=== PATIENT | male | born 1950 | race African-American/Black ===

== ENCOUNTER → 2017-04-16 | Outpatient (CLI) | payer MEDICARE ==
--- NOTE | 2017-04-16 12:34 | RAD ---
Radionuclide bone scan, 04/16/2017: History: Prostate cancer Whole body imaging was performed following IV injection of 26 mCi of technetium 99m MDP. No previous bone scan is available at this time for comparison purposes. The following findings are delineated: 1. Mildly increased activity at both wrists, elbows, shoulders and knees is likely arthritic in nature. 2. Mildly increased activity is seen at the left hip joint medially. This may be arthritic in nature. 3. Multilevel increased activity in the mid to lower cervical spine is probably on an arthritic basis. 4. Mildly increased activity is present in the proximal to mid right humeral shaft. This may be posttraumatic. Correlation with humeral radiographs is suggested. 5. A small focus of increased activity in the left maxillary region may be due to dental disease. 6. No convincing evidence of multifocal osseous metastatic disease.
== END | disposition home or self-care (01) ==
LOC: NM 07:46
PROVIDERS: ATTEND Urology
DX: C61 Malignant neoplasm of prostate (principal)
CPT/HCPCS: 78306; 96374; A9503

== ENCOUNTER → 2017-05-04 | Outpatient (CLI) | payer MEDICARE ==
[~2017-05-04] MED LIST: GADOBUTROL 7.5 MMOL/7.5 ML VIAL IV ONE
[2017-05-04 10:30] LABS: GFR 89.9
== END | disposition home or self-care (01) ==
LOC: MRI 09:50
PROVIDERS: ATTEND Urology
DX: C61 Malignant neoplasm of prostate (principal)
CPT/HCPCS: 36415; 82565

== ENCOUNTER 2017-09-21 13:09 | Emergency (ER) | payer MEDICARE ==
[2017-09-21] MEDS ORDERED: CONTRAST GIVEN MC (13:45)
[2017-09-21] MEDS: IOHEXOL 300 MG/ML 100ML VIAL. IV (14:00)
[2017-09-21 14:06] LABS: ADD MAN DIFF? NO
[2017-09-21 14:08] LABS: BASO % 1 % (0-3); EOS # 0.1 x10^3/uL (0.0-0.7); EOS % 3 % (0-3); HEMATOCRIT 42.6 % (39.0-53.0); HEMOGLOBIN 14.5 g/dL (13.0-17.5); LYMPH # 0.9 x10^3/uL (1.0-4.8); LYMPH % 27 % (24-48); MEAN CORPUSCULAR HEMOGLOBIN 31 pg (25-35); MEAN CORPUSCULAR HGB CONC 34 g/dL (31-37); MEAN CORPUSCULAR VOLUME 90 fL (79-100); MONO # 0.4 x10^3/uL (0.0-1.1); MONO % 11 % (0-9); NEUT # 1.9 x10^3uL (1.8-7.7); NEUT % 58 % (31-73); PLATELET COUNT 236 x10^3/uL (140-400); RED BLOOD COUNT 4.72 x10^6/uL (4.30-5.70); RED CELL DISTRIBUTION WIDTH 13.4 % (11.5-14.5); WHITE BLOOD COUNT 3.3 x10^3/uL (4.0-11.0)
[2017-09-21] MEDS: IV NORMAL SALINE 1000ML BAG 1,000 ML IV (14:14)
[2017-09-21 14:25] LABS: ANION GAP 9 (6-14); BLOOD UREA NITROGEN 8 mg/dL (8-26); BUN/CREATININE RATIO 9 (6-20); CALCIUM 8.8 mg/dL (8.5-10.1); CARBON DIOXIDE 26 mmol/L (21-32); CHLORIDE 100 mmol/L (98-107); CREATININE 0.9 mg/dL (0.7-1.3); GFR 101.5; GLUCOSE 95 mg/dL (70-99); POTASSIUM 3.1 mmol/L (3.5-5.1); SODIUM 135 mmol/L (136-145)
[2017-09-21 14:31] LABS: ALBUMIN/GLOBULIN RATIO 0.8 (1.0-1.7); ALK PHOS 65 U/L (46-116); ALT (SGPT) 24 U/L (16-63); AST (SGOT) 20 U/L (15-37); TOTAL BILIRUBIN 1.6 mg/dL (0.2-1.0); TOTAL PROTEIN 6.8 g/dL (6.4-8.2)
[2017-09-21 14:41] LABS: BILIRUBIN,URINE NEGATIVE (NEG); CLARITY,URINE CLEAR; COLOR,URINE YELLOW; GLUCOSE,URINE NEGATIVE (NEG); NITRITE,URINE NEGATIVE (NEG); PROTEIN,URINE 30 mg/dL (NEG-TRACE)
[2017-09-21 14:53] LABS: BACTERIA,URINE 0 /HPF (0-FEW); RBC,URINE TNTC /HPF (0-2); SQUAMOUS EPITHELIAL CELL,UR OCC /LPF
[2017-09-21] MEDS: POTASSIUM CHLORIDE 20 MEQ TABLET.ER. PO (15:29)
[2017-09-21] MEDS: LABETALOL 20 MG/4 ML DISP.SYRIN. IVP (15:49)
== END 2017-09-21 17:40 | disposition home or self-care (01) ==
LOC: ER 13:09
DX: R19.09 Other intra-abdominal and pelvic swelling, mass and lump (principal); Z98.890 Other specified postprocedural states; R10.30 Lower abdominal pain, unspecified; N48.89 Other specified disorders of penis; I10 Essential (primary) hypertension; Z90.79 Acquired absence of other genital organ(s); Z88.0 Allergy status to penicillin
CPT/HCPCS: 36415; 74177; 80053; 81001; 85025; 96361; 96374; 99285-25; J3490; J7030; Q9967

== ENCOUNTER → 2019-12-16 | Outpatient (CLI) | payer MEDICARE ==
[2017-09-21 17:15] VITALS: BP 168/81
[~2019-12-16] MED LIST changes: -GADOBUTROL 7.5 MMOL/7.5 ML VIAL IV ONE; +IOHEXOL 240 MG/ML 50ML VIAL. PO ONE; +IOHEXOL 300 MG/ML 100ML VIAL. IV ONE
--- NOTE | 2019-12-16 16:41 | KCIC ---
CT study abdomen with and without contrast Clinical indications: Liver mass follow-up TECHNIQUE: Noncontrast helical CT scanning of the abdomen from the hemidiaphragms down to the iliac crests was performed. Following IV infusion of 89 cc of Omnipaque 300, repeat helical CT scanning of the abdomen was performed during the portal vein phase and after 3 minutes of delay. GI contrast was administered per mouth. PQRS compliance Statement One or more of the following individualized dose reduction techniques were utilized for this study: 1. Automated exposure control 2. Adjustment of the mA and/or kV according to patient size 3. Use of iterative reconstruction technique COMPARISON: September 21, 2017. FINDINGS: There is calcification of the posterior aspect of the right lobe of the liver. 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 This is unchanged. The rest of the portal vein enhances normally. The intrahepatic veins enhance normally. There is a lesion of the inferior aspect of the lateral segment left lobe liver segment 3. This measures 19 mm in size. This measured 18 mm in size previously. Peripheral nodular enhancement is seen. There is complete filling in on the delayed images. This is consistent with a hemangioma. Just lateral to the fissure, there is an area of hypodensity of the medial segment left lobe liver which is unchanged from the prior study consistent with a benign finding. No new hepatic lesions are seen. The spleen is not enlarged. Pancreas enhances homogeneously without focal enlargement. No abnormal dilatation of the main pancreatic duct is seen. Gallbladder is normal. No extrahepatic biliary ductal dilatation is seen. No adrenal mass is evident. Both kidneys are normal. No focal aneurysmal dilatation of the abdominal aorta is seen. No enlarged abdominal lymphadenopathy is evident. No obstructive bowel pattern is evident. No free air or free fluid or mesenteric edema is seen. The pelvis was not evaluated on this study. No consolidative lung base infiltrate is seen. Round radiolucencies of the upper pelvic bones and lumbar spine are again evident and are unchanged. This may related to osteoporosis therefore. IMPRESSION: Stable hemangioma of the left lobe of the liver. No new abnormality. Electronically signed by: Mode Macdonald MD (12/16/2019 4:38 PM) [id number]
== END ==
LOC: KCIC CT 08:22
PROVIDERS: ATTEND Family Medicine
DX: D18.09 Hemangioma of other sites (principal)
CPT/HCPCS: 74170; Q9966; Q9967